=== PATIENT | female | born 1960 | race Two or more races ===

== ENCOUNTER → 2024-04-21 | Outpatient (CLI) | payer MEDICAID, SELFPAY ==
--- NOTE | 2024-04-21 12:30 | XR_ITS ---
Examination: Breast ultrasound, unilateral, right complete Date and time of exam: April 21, 2024 1300 hours INDICATIONS: History biopsy upper breast on the right 2019, mammogram February 26, 2024 10 mm focal asymmetry upper right breast MLO view Technique: Real-time cunningham scale ultrasonographic imaging performed right breast including all 4 quadrants as well as nipple retroareolar and axillary region. Findings: 12:00 oval mass versus glandular tissue 7 x 5 x 9 mm IMPRESSION: BI-RADS Category 3: Probably benign findings Recommend 6 month right breast sonogram follow-up to document stability of nodule versus glandular tissue 12:00 position right breast
--- NOTE | 2024-04-21 13:00 | XR_ITS ---
Examination: Diagnostic digital mammography, unilateral, right Computer aided detection 3-D breast Tomosynthesis, unilateral Date and time of exam: April 21, 2024 1317 hours INDICATIONS: Mammogram February 26, 2024 10 mm focal asymmetry upper right breast MLO view Technique: Nonmagnified MLO, CC views of the right breast have been obtained, reconstructed from 3-D Tomosynthesis images. R2 computer aided detection program utilized for evaluation of suspicious masses and/or abnormal calcifications. 3-D Tomosynthesis images obtained. Findings: The breast is heterogeneously dense, which may obscure small masses Benign calcifications No suspicious masses Impression: BI-RADS category 2: Benign findings Return to yearly follow-up mammography Please see the right breast sonogram report today recommending six-month right breast sonogram follow-up
== END | disposition home or self-care (01) ==
PROVIDERS: PCP Physician Assistant Medical; Referring Provider Physician Assistant Medical; Visit Provider Physician Assistant Medical
DX: R92.321 Mammographic fibroglandular density, right breast (principal); R92.1 Mammographic calcification found on diagnostic imaging of breast; N63.15 Unspecified lump in the right breast, overlapping quadrants
CPT/HCPCS: 76641; 77061; 77065; G0279

== ENCOUNTER 2024-06-29 02:32 | Emergency (ER) | payer MEDICAID, SELFPAY ==
[2024-06-29 02:35] VITALS: BP 162/93; PULSE 61; PULSE 70; RESP 20; TEMP 36.6; O2SAT 97
--- NOTE | 2024-06-29 02:37 | XR_ITS ---
Examination: AP chest single view TECHNIQUE: AP portable upright chest single view Exam date and time: June 29, 2024 at 0305 hours INDICATIONS: Shortness of breath today. FINDINGS: Prominent right paratracheal region, which could relate to early pneumonia or atelectasis Normal heart size Intact osseous structures IMPRESSION: Recommend PA lateral chest follow-up to exclude abnormal right paratracheal mediastinal contour
[2024-06-29 02:38] VITALS: BMI 33.3
--- NOTE | 2024-06-29 02:39 | PD.EDSOB ---
ED SOB =RME/HPI General Chief Complaint: Shortness of Breath/Dyspnea Stated Complaint: SOB Time Seen by Provider: 06/29/24 02:44 Arrival date/time: 06/29/24 02:32 RME / HPI RME / HPI Narrative: This section includes all my notes and documentations, including HPI, PE, and ED course. Fernie Munoz MD HPI: 63-year-old female here to be evaluated with shortness of breath. 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 Ever since, she reports worsening cough and shortness of breath. No productive cough. No chest pain. No other complaints. ROS: All negative except as documented in HPI. Physical Exam: General: Alert and oriented. Appears anxious. Eyes: Conjunctivae and lids clear. ENT: No nasal congestion. Neck: Supple. Heart: RRR. Lungs: No respiratory distress. Moderately decreased air movement with diffuse rhonchi. Abdomen: Soft and nontender. Skin: Warm and dry. Neuro: Alert and oriented X 3. I reviewed all diagnostic test results. My interpretation of the EKG is sinus rhythm with no acute ST?T changes. My interpretation of the chest x-ray is no acute findings, official radiology report is pending. Blood tests and urine tests unremarkable. At this point, diagnoses include acute bronchospasm. Treatment here included IV fluid, Solu-Medrol to 25 mg IV, Benadryl 50 mg IV, DuoNeb, oral clonidine 0.2 mg, and Ativan 0.5 mg IV. Significant improvement noted. Recommended a trial of treatment at home. Based on my best medical judgment, made decision no further evaluation or treatment indicated at this time. Patient understands and agrees to the discharge instructions customized and printed, see below. Discharge instructions from Dr. Munoz: --No physical exertion for 3 days to help rest the lungs. ?No smoking or exposure to smoking or pets or dust or cold air. --Prednisone to help decrease the swelling in the airways. --Albuterol 2 puffs every 4-6 hours today and tomorrow to help keep the airways open. Then as needed for cough or shortness of breath. --Benadryl 50 mg every 6-8 hours as needed for cough or congestion. --See a private doctor on 07/01/2024 for recheck and further care. Ask for help with official testing for underlying asthma. --Seek immediate medical care with worsening or with any concerns. Fernie Munoz MD Related Data Home Medications ?Medication ?Instructions ?Recorded ?Confirmed metformin 500 mg tablet 500 mg PO BIDAC #0 tabs 01/04/14 02/21/18 (Glucophage) Previous Rx's ?Medication ?Instructions ?Recorded acetaminophen 300 mg-codeine 30 mg 1 tab PO Q6H PRN Pain #10 tabs 02/21/18 tablet (Tylenol-Codeine #3) ibuprofen 600 mg tablet 600 mg PO Q8H PRN pain #30 tabs 04/01/21 albuterol sulfate 90 mcg/actuation 2 puff inhalation Q6H PRN 06/29/24 aerosol inhaler shortness of breath or wheezing #8.5 grams prednisone 50 mg tablet 50 mg PO QDAY #2 tabs 06/29/24 Allergies Allergy/AdvReac Type Severity Reaction Status Date / Time No Known Allergies Allergy Verified 06/29/24 02:39 Course Quality Measures none Orders Category Date Time Status EKG (ED ONLY) *Do not use* NOW Care 06/29/24 02:37 Completed Saline [Insert IV] NOW Care 06/29/24 02:37 Completed EKG (ED Only) Stat Exams 06/29/24 02:37 Ordered XR chest 1V portable Stat Exams 06/29/24 02:37 Completed CBC Stat Lab 06/29/24 02:43 Completed CMP [Comprehensive Metabolic Panel] Stat Lab 06/29/24 02:43 Completed Magnesium Stat Lab 06/29/24 02:43 Completed TSH [Thyroid Stimulating Hormone] Stat Lab 06/29/24 02:43 Completed Troponin I Stat Lab 06/29/24 02:43 Completed UA, C/S IF [Urinalysis, C/S if Indicated] Stat Lab 06/29/24 03:30 Completed Albuterol/Ipratr Rt Shira [Duoneb Rt Shira] Med 06/29/24 02:38 Discontinued 3 ml INH X1 ONE DiphenhydrAMINE INJ [Benadryl Inj] Med 06/29/24 02:38 Discontinued 50 mg IV X1 STA LORazepam [Ativan Inj] Med 06/29/24 03:33 Discontinued 0.5 mg IVP X1 ONE MethylPREDNISolone.* [SoluMEDROL Inj] Med 06/29/24 02:38 Discontinued 125 mg IVP X1 ONE Sodium Chloride 0.9% 1000 ml [Ns] 1,000 ml Med 06/29/24 02:38 Discontinued IV 999 mls/hr cloNIDine HCL [Catapres] Med 06/29/24 03:44 Discontinued 0.2 mg PO X1 ONE Vital Signs Vital signs: Vital Signs Temperature 97.8 F 06/29/24 02:35 Pulse Rate 61 06/29/24 02:35 Respiratory Rate 20 06/29/24 02:35 Blood Pressure 162/93 H 06/29/24 02:35 Pulse Oximetry (%) 97 06/29/24 02:35 Oxygen Delivery Method Room Air 06/29/24 02:35 Shortness of Breath / Dyspnea Patient data External records reviewed:: [facility] previous records and EMS form Clinical information provided by:: patient and EMS Social determinants that could affect healthcare access:: none Patient has the following chronic illnesses:: HTN and DM and HLD How is presenting disease/condition affected by chronic disease/condition?: uneffected by Evaluation data The following diagnostics were reviewed and interpreted by me:: lab results, radiology exam(s) and EKG tracing(s) (My interpretation of the EKG is: Sinus rhythm (61 bpm) with nonspecific ST-T changes. Fernie Munoz MD) Lab and/or radiology exams considered but not ordered:: None Interpretation Summary: Normal diagnostics Medications / Prescriptions Medications or Prescriptions considered but not ordered:: None Medication administrations:: Medication Administration History Discontinued Medications Albuterol/Ipratropium (Albuterol/Ipratropium (Duoneb) Rt Shira 3 Ml Nebu) 3 ml INH X1 ONE Stop: 06/29/24 02:39 Last Admin: 06/29/24 02:53 Dose: 3 ml Documented By: NE Clonidine (Clonidine Hcl 0.1 Mg Tablet) 0.2 mg PO X1 ONE Stop: 06/29/24 03:45 Diphenhydramine HCl (Diphenhydramine Inj 50 Mg/Ml Vial) 50 mg IV X1 STA Stop: 06/29/24 02:39 Last Admin: 06/29/24 02:48 Dose: 50 mg Documented By: KG Sodium Chloride (Ns) 1,000 mls @ 999 mls/hr IV .Q1H1M ONE Stop: 06/29/24 03:38 Last Infusion: 06/29/24 04:06 Dose: Infused Documented By: Admin: 06/29/24 02:46 Dose: 999 mls/hr Documented By: KG Lorazepam (Lorazepam 2 Mg/Ml Vial) 0.5 mg IVP X1 ONE Stop: 06/29/24 03:34 Last Admin: 06/29/24 04:05 Dose: 0.5 mg Documented By: CVL Methylprednisolone Sodium Succinate (Methylprednisolone Sod Succ 62.5 Mg/Ml 2ml Vial) 125 mg IVP X1 ONE Stop: 06/29/24 02:39 Last Admin: 06/29/24 02:47 Dose: 125 mg Documented By: KG IV fluid, Solu-Medrol, Benadryl, DuoNeb, Ativan, and clonidine. Consultations Consultation(s) initiated? (list below): No Diagnosis Shortness of Breath Differential Diagnosis: acute exacerbation of chronic obstructive airways disease, congestive heart failure, community acquired pneumonia, asthma with exacerbation and pulmonary embolism Most likely diagnosis given after review of the tests above:: Acute bronchospasm Admission Indicated Admission indicated?: indicated Explain why admission is indicated or not indicated:: With significant improvement, there was no indication for admission. Admission Request Was there a request for admission?: No Disposition Plan Disposition Plan: Discharge Discharge Attestation Discharge Attestation: The patient and all family members were given an opportunity to ask questions and understood the discharge instructions. Discharge instructions specifically effects, indications for sooner follow up or return to the emergency department, and the expected course of current diagnosis. Patient condition: Stable Discharge Plan Plan Patient Disposition: HOME (Self Care) Prescriptions/Referrals Prescriptions/Med Rec: New prednisone 50 mg tablet 50 mg PO QDAY Qty: 2 0RF albuterol sulfate 90 mcg/actuation HFA aerosol inhaler 2 puff inhalation Q6H PRN (Reason: shortness of breath or wheezing) Qty: 8.5 0RF No Action metformin [Glucophage] 500 MG tablet 500 mg PO BIDAC Qty: 0 ibuprofen 600 mg tablet 600 mg PO Q8H PRN (Reason: pain) Qty: 30 0RF acetaminophen-codeine [Tylenol-Codeine #3] 300-30 mg tablet 1 tab PO Q6H PRN (Reason: Pain) Qty: 10 0RF Rx Instructions: no driving or drinking alcohol while on this medication Problem List Clinical Impression: Acute bronchospasm Patient/Caregiver Discharge Instructions Discharge Activity: activity as tolerated Education Materials: ED Bronchospasm (Adult) Additional Instructions: Discharge instructions from Dr. Munoz: --No physical exertion for 3 days to help rest the lungs. ?No smoking or exposure to smoking or pets or dust or cold air. --Prednisone to help decrease the swelling in the airways. --Albuterol 2 puffs every 4-6 hours today and tomorrow to help keep the airways open. Then as needed for cough or shortness of breath. --Benadryl 50 mg every 6-8 hours as needed for cough or congestion. --See a private doctor on 07/01/2024 for recheck and further care. Ask for help with official testing for underlying asthma. --Seek immediate medical care with worsening or with any concerns. Print Language: Mongolian Stand Alone Forms: [employer] Award Info., Patient Portal Info Letter
[2024-06-29] MEDS: SODIUM CHLORIDE 0.9% 1000 ML 1,000 ML 999 ML IV (02:46)
[2024-06-29] MEDS: MethylPREDNISolone SOD SUCC 62.5 MG/ML 2ML VIAL 125 MG IVP (02:47)
[2024-06-29] MEDS: DiphenhydrAMINE INJ 50 MG/ML VIAL IV (02:48)
--- NOTE | 2024-06-29 02:52 | PC.NURSE ---
RT at the bedside for breathing tx.
[2024-06-29 02:53] VITALS: PULSE 61; RESP 20; O2SAT 98
[2024-06-29 02:53] LABS: Basophils # (Auto) 0.1 Thou/mm3 (0.0-0.2); Basophils % (Auto) 1 % (0-2.5); Eosinophils # (Auto) 0.3 Thou/mm3 (0.0-0.5); Eosinophils % (Auto) 3 % (0-10); Hematocrit 40.6 % (36.0-46.0); Hemoglobin 14.4 g/dL (12.0-16.0); Immature Granulocytes % (Auto) 1 % (0-0); Immature Granulocytes Auto 0.09 Thou/mm3 (0.00-0.00); Lymphocytes # (Auto) 3.4 Thou/mm3 (1.0-4.8); Lymphocytes % (Auto) 34 % (10-50); Mean Corpuscular HGB Conc 35.5 g/dl (31.0-37.0); Mean Corpuscular Hemoglobin 29.7 pg (25.0-35.0); Mean Corpuscular Volume 84 fL (80-100); Monocytes # (Auto) 0.6 Thou/mm3 (0.0-0.8); Monocytes % (Auto) 6 % (0-12); Neutrophils # (Auto) 5.5 Thou/mm3 (1.8-7.7); Neutrophils % (Auto) 55 % (37-80); Nucleated Red Blood Cell % 0 /100 WBC (0); Platelet Count 293 Thou/mm3 (140-440); RDW Standard Deviation 41.1 fL (36.4-46.3); Red Blood Count 4.85 Miln/mm3 (4.00-5.20); White Blood Count 9.9 Thou/mm3 (3.6-11.0)
[2024-06-29] MEDS: ALBUTEROL/IPRATROPIUM (Duoneb) RT SOL 3 ML NEBU INH (02:53)
--- NOTE | 2024-06-29 03:02 | PC.NURSE ---
XRAY at the bedside.
[2024-06-29 03:19] VITALS: BP 161/104; PULSE 75; RESP 20; O2SAT 95
[2024-06-29 03:29] LABS: Alanine Aminotransferase 25 U/L (10-49); Albumin, Serum 4.5 gm/dL (3.4-4.8); Alkaline Phosphatase 81 U/L (46-116); Anion Gap 8 (7-16); Aspartate Amino Transferase 18 U/L (0-34); BUN/Creatinine Ratio 15 Ratio (12-20); Bilirubin,Total 0.6 mg/dL (0.3-1.2); Blood Urea Nitrogen 9 mg/dL (9-23); Calcium 10.3 mg/dL (8.3-10.6); Calcium (Corrected) 10.3 mg/dL (8.5-10.1); Chloride 108 mMol/L (98-107); Creatinine (Component) 0.6 mg/dL (0.6-1.3); Estimated Creatinine Clearance 85.7 mL/min (>60); Globulin 2.3 gm/dL (2.3-3.5); Glucose 134 mg/dL (74-106); Osmolality,Calculated 281 (275-295); Potassium 3.7 mMol/L (3.4-5.1); Sodium 141 mMol/L (136-145); Thyroid Stimulating Hormone 3.84 uIU/mL (0.55-4.78); Total Protein 6.8 gm/dL (5.7-8.2); Troponin I < 0.002 ng/mL (0.0-0.045); eGFR > 60 See Note
[2024-06-29 03:46] LABS: Collection Type, Urine Clean Catch
[2024-06-29 04:03] LABS: Bilirubin,Urine Negative (Negative); Blood,Urine Negative (Negative); Clarity,Urine Clear (Clear/Hazy); Color,Urine Colorless (Lt Yel-Yel); Culture Indicated,Urine Not Indicated; Glucose, Urine Trace (Negative); Ketones,Urine Negative (Negative); Leukocyte Esterase,Urine Negative (Negative); Nitrite,Urine Negative (Negative); PH,Urine 6.5 (5.0-7.0); Protein,Urine Negative (Neg - Trace); RBC,Urine < 1 /hpf (0-3); Specific Gravity,Urine 1.004 (1.001-1.035); Squamous Epithelial Cell,Urine < 1 /hpf (0-5); Urobilinogen,Urine Negative mg/dL (0.0-1.0); WBC,Urine < 1 /hpf (0-5)
[2024-06-29] MEDS: LORazepam 2 MG/ML VIAL 0.5 MG IVP (04:05)
[2024-06-29 04:06] VITALS: BP 176/76; PULSE 74; RESP 20; O2SAT 94
[2024-06-29 04:32] VITALS: BP 176/76; PULSE 76; RESP 20; O2SAT 96
== END 2024-06-29 04:32 | disposition home or self-care (01) ==
LOC: SERX 04:37
PROVIDERS: Emergency Provider Emergency Medicine
DX: J98.01 Acute bronchospasm (principal)
CPT/HCPCS: 36415; 71045; 80053; 81001; 83735; 84443; 84484; 85025; 93005; 94640; 96361; 96374; 96375; 99284; A9270; J1200; J2060; J2919; J7030